=== PATIENT | female | born 1985 | race Caucasian/White ===

== ENCOUNTER 2025-04-12 19:35 | Emergency (ER) | payer BC ==
[~2025-04-12] VITALS: Ht 162.6 cm; Wt 134.2 kg
[2025-04-12 19:40] VITALS: BP 178/97; PULSE 87; TEMP 97.6; O2SAT 97
[2025-04-12] MEDS ORDERED: CLIN300C3 PO (19:48)
[2025-04-12] MEDS ORDERED: ACET1TAB96 PO (19:48)
--- NOTE | 2025-04-12 19:48 | Physician Documentation ---
HPI ~ General Stated Complaint: TOOTH PAIN OK to notify your PCP?: Yes Source: patient Mode of Arrival: POV Exam Limitations: no limitations History of Present Illness HPI Comment 39-year-old female reports having left upper tooth pain which started yesterday. She states that that tooth broke a couple of months ago but she has not had any symptoms with it. She reports taking Tylenol and ibuprofen [id number] as well as trying to use Orajel which helped yesterday but today is not working. She denies any discharge from the gum. Review of Systems All Other Systems at this time: Reviewed and Negative Physical Exam Vital Signs: RN Vital Signs have been reviewed: Yes Pulse Oximetry Reflects: adequate oxygenation Physical Exam General: Alert, no apparent distress. HEENT: PERRL, EOMI, no injection, moist mucous membranes. Respiratory: Lungs clear, no respiratory distress. Chest: No accessory muscle use. Cardiovascular: Regular rate and rhythm, no murmurs. Extremities: Normal range of motion, no deformity. Neurologic: Oriented x4. Psychiatric: Normal mood and affect. Skin: Normal color, warm and dry. No edema, no ecchymosis. Mouth/Throat: normal mouth inspection Palate: normal inspection Teeth/Gums: carious, fractured tooth, gingiva redness, gingiva swelling Teeth/Gums Tooth #15. Face: normal inspection Head: normal inspection Neck: non-tender, full range of motion, normal inspection Medical Decision Making Findings 39-year-old female with pain and swelling at tooth #15 since yesterday. She reports breaking that tooth a couple of months ago but has not have symptoms until now She tried [id number] measures for pain relief which helped yesterday but today is no longer working. There is edema and erythema at the site with a fractured tooth noted. We discussed that she needs to follow up with her primary care provider, take all antibiotics as prescribed and finish the course, and see a dentist as soon as possible as that tooth likely needs pulled. She should return back here for any new or worsening symptoms. Clindamycin, Tylenol No. 3, and benzocaine all sent to pharmacy. First dose of clindamycin and 1 dose of Erving given here in the department. Differential Dx:Considerations: Include: Facial Cellulitis, Periapical abscess, Tooth avulsion, Tooth eruption Departure Disposition: HOME / SELF CARE / HOMELESS Impression: Primary Impression: Dental abscess Condition: Stable Discharge Instructions: Dental Abscess, [id number] Additional Instructions: Please use Tylenol or ibuprofen for pain relief 1st and if that is not helping then you can use the Tylenol with codeine. Please be mindful not to go over 4 g of Tylenol in a 24 hour period. Please use the benzocaine to also help with pain relief. please take all antibiotics as prescribed and finish the course even if you start feeling better. Follow up with her primary care provider in the next 3 days and work to see a dentist as it tooth likely needs pulled. Referrals: NO PRIMARY CARE PROVIDER (PCP) Prescriptions Benzocaine (Anbesol) 20 % Gel..gm. 1 APPLIC TOP Q8H for 5 Days, #9 GM 0 Refills Prov: MARIA ELENA GALEP 04/12/25 Acetaminophen W/Codeine #3 (ACETAMINOPHEN-COD #3 TABLET) 1 Each Tablet 1 EACH PO Q6H PRN for pain, #20 TAB Prov: MARIA ELENA GALEP 04/12/25 Clindamycin HCl (Cleocin HCl) 300 Mg Capsule 1 CAP PO Q6H for 10 Days, #40 CAP Prov: MARIA ELENA GALEP 04/12/25 Education Educated: Patient, Family Educated regarding: diagnosis, treatment, prognosis, need for follow up Signature Scribe Signature: . Attestation: Scribed for Emergency,Department by Maria Elena Gale - ERNST . 04/12/25 19:56 MARIA ELENA GALEP April 12, 2025 19:48
[2025-04-12] MEDS ORDERED: BENZ9GEL TOP (19:49)
[2025-04-12] MEDS: clindamycin 150mg capsule PO ONE (20:02)
[2025-04-12 20:03] VITALS: RESP 16
[2025-04-12] MEDS: HYDROcodone/acetaminophen 10/325mg tab PO ONE (20:03)
== END 2025-04-12 20:09 | disposition home or self-care (01) ==
LOC: ER 19:36
DX: K04.7 Periapical abscess without sinus (principal)
CPT/HCPCS: 99283